=== PATIENT | female | born 1960 | race Two or more races ===

== ENCOUNTER 2019-03-21 10:24 | Emergency (ER) | payer MEDICARE, OTHER ==
[~2019-03-21] VITALS: Ht 152.4 cm; Wt 66.7 kg
[~2019-03-21 10:24] MED LIST: CARI-277; HYDR-1421; LEVO25TA49
[2019-03-21 10:40] VITALS: BP 103/64
[2019-03-21] MEDS ORDERED: IBUPROFEN 800 MG TAB PO ONE (13:15)
== END 2019-03-21 13:30 | disposition home or self-care (01) ==
LOC: ER 10:24
DX: S93.602A Unspecified sprain of left foot, initial encounter (principal); M19.90 Unspecified osteoarthritis, unspecified site; X50.1XXA Overexertion from prolonged static or awkward postures, initial encounter; Y93.89 Activity, other specified; Y99.8 Other external cause status; Y92.89 Other specified places as the place of occurrence of the external cause
CPT/HCPCS: 73620